=== PATIENT | male | born 1970 | race Caucasian/White ===

== ENCOUNTER 2017-04-12 04:57 | Inpatient (IN) | payer MEDICAID ==
[~2017-04-12] VITALS: Ht 157.5 cm; Wt 63.1 kg
[2017-04-12] VITALS (14 sets, daily range): BP systolic 141–161; BP diastolic 60–89; PULSE 95–116; RESP 18; TEMP 98.4; Ht 157.5 cm; Wt 63.1 kg
[2017-04-12] MEDS ORDERED: CEFEPIME 2GM/50 ML (PMX) 50 ML IVPB STA ×2 (05:13→07:04)
[2017-04-12] MEDS ORDERED: SODIUM CHLORIDE 0.9% 1L BAG IV* STA (05:13)
[2017-04-12 05:35] LABS: AADO2 Arterial 106.1 mmHg (7.0-24.0); Arterial Base Excess -1.5 mmol/L (-3.0-3); Arterial COHb 0.1 % (0.0-3.0); Arterial Fraction of Oxyhgb 94.1 % (93.0-99.0); Arterial HCO3 21.2 mmol/L (22.0-26.0); Arterial MetHb 0.1 % (0.0-1.5); Arterial Total Hemglobin 10.5 g/dl (12.0-18.0); Blood Gas IEPAP 15 / 5; Blood Gas PS 10; MODE MASK - BIPAP
[2017-04-12 05:44] LABS: ABNORMAL IP MESSAGE 1; BASOPHILS % 0.1 % (0.0-2.0); HEMOGLOBIN 9.2 g/dl (14.0-18.0); LYMPHOCYTES # 0.3 10^3/ul (0.8-2.9); LYMPHOCYTES % 4.9 % (15.0-51.0); MEAN CORPUSCULAR HEMOGLOBIN 30.7 pg (29.0-33.0); MEAN CORPUSCULAR HGB CONC 32.9 g/dl (32.0-37.0); MEAN CORPUSCULAR VOLUME 93.3 fl (82.0-101.0); MEAN PLATELET VOLUME 10.6 fl (7.4-10.4); MONOCYTE # 0.5 10^3/ul (0.3-0.9); MONOCYTES % 7.3 % (0.0-11.0); NEUTROPHIL # 6.1 10^3/ul (1.6-7.5); NEUTROPHILS % 87.6 % (39.0-77.0); PLATELET COUNT 202 10^3/UL (140-415); POSITIVE DIFF @See below; WHITE BLOOD COUNT 6.9 10^3/ul (4.8-10.8)
[2017-04-12 06:00] LABS: INR 1.21; PROTIME 15.4 Sec (12.2-14.2); PT RATIO 1.2
[2017-04-12 06:01] LABS: PARTIAL THROMBOPLASTIN TIME 55.4 Sec (25.0-35.0)
[2017-04-12 06:07] LABS: ALBUMIN 3.9 g/dl (3.3-4.9); ALBUMIN/GLOBULIN RATIO 1.62; BILIRUBIN,INDIRECT 0.1 mg/dl (0-1.1); BILIRUBIN,TOTAL 0.1 mg/dl (0.2-1.3); CALCIUM 8.9 mg/dl (8.4-10.2); CREATININE 9.91 mg/dl (0.61-1.24); POTASSIUM 4.4 mmol/L (3.5-5.1); TOTAL PROTEIN 6.3 g/dl (6.1-8.1)
[2017-04-12 06:18] LABS: TROPONIN-I 0.07 ng/ml (0.00-0.12)
[2017-04-12] MEDS ORDERED: ACETAMINOPHEN 500 MG TAB PO STA (07:06)
[2017-04-12] MEDS ORDERED: ALBUTEROL 0.083% (NEB) 2.5 MG/3 ML AMP NEB STA (07:09)
[2017-04-12] MEDS ORDERED: IPRATROPIUM (NEB) 0.5 MG/2.5 ML AMP NEB STA (07:09)
--- NOTE | 2017-04-12 07:21 | ERD ---
ER Documentation Chief Complaint Chief Complaint bib ra from dialysis; ra sats 84%, SOB,cough, flu sx's x 1 wk, fever today HPI This is a 46-year-old Australian-speaking male with a known history of end-stage renal disease on hemodialysis every Friday and Friday. The patient had been at his dialysis center just prior to arrival when he developed sudden onset of difficulty in breathing. The patient had received 2 hours of his dialysis when he suddenly became hypoxic satting 84%. He indicates that over the past week he has had a productive cough, tactile fever, generalized myalgias and a decrease in appetite. He denies a headache or neck pain. He did not take any antipyretics prior to arrival. He denies any recent travel and states he has never experienced any similar symptoms. He has no swelling of his lower extremities. Denies any chest pain or pressure that radiates the neck arm back or jaw. ROS All systems reviewed and are negative except as per history of present illness. Allergies Allergies: Coded Allergies: No Known Allergy (Unverified , 04/12/17) PMhx/Soc History of Surgery: Yes (FISTULA JANET) Anesthesia Reaction: No Hx Miscellaneous Medical Probl: Yes (RF, HTN) Hx Alcohol Use: Yes Hx Substance Use: No Hx Tobacco Use: No Smoking Status: Never smoker Physical Exam Vitals Vital Signs Date Time Temp Pulse Resp B/P Pulse Ox O2 Delivery O2 Flow Rate FiO2 04/12/17 08:12 2.0 04/12/17 08:12 120 18 97 Nasal Cannula 2.0 04/12/17 06:35 126 40 166/89 93 Nasal Cannula 3.0 04/12/17 05:17 Non Rebreather 15 04/12/17 05:06 126 34 169/101 98 BIPAP 04/12/17 05:03 102.6 132 27 169/101 100 04/12/17 05:00 129 99 30 Physical Exam Constitutional:Well-developed. Well-nourished. Patient in severe respiratory distress HEENT:Normocephalic. Atraumatic.Pupils were equal round reactive to light. Moist mucous membranes.No tonsillar exudates. Neck: No nuchal rigidity. No lymphadenopathy. No posterior cervical spine tenderness or step-offs. Respiratory: Using accessory muscles of respiration. Decreased breath sounds heard bilaterally. No rales. No wheezing. Cardiovascular: Tachycardic with regular rhythm.No murmurs. No rubs were appreciated.S1, S2 normal. Distal pulses are palpable 2+ bilaterally. GI: Abdomen was soft. Nontender. Non Distended. No pulsatile abdominal masses or bruits. No rebound. No guarding. Bowel sounds were present and normal. Muscle skeletal: Full range of motion of both the upper and lower extremities bilaterally.Normal muscle tone.No assymetrical calf tenderness or swelling. Skin: No petechia, no purpura. No lesions on the palms or the soles of the feet. No maculopapular rash. Positive thrill and bruit of the left upper extremity AV fistula NEURO: Patient was alert, awake, orientated x3.No facial droop. Gait observed and normal with no ataxia.Speech had regular rate and rhythm. No focal neurological deficits. Result Diagram: 04/12/17 0515 04/12/17 0515 Results 24 hrs Laboratory Tests Test 04/12/17 05:13 04/12/17 05:15 04/12/17 07:55 Blood Gas Specimen Source Blood arterial Arterial Blood Date Drawn 04/12/2017 5:10:02 AM Arterial Blood pH (Temp corrected) 7.482 Arterial Blood pCO2 (Temp correct) 29.0mmhg Arterial Blood pO2 (Temp corrected) 73.7mmHG Arterial Blood HCO3 21.2mmol/L Arterial Blood Base Excess -1.5mmol/L Arterial Blood Oxygen Saturation 94.3mmHG Andrey Test N/A Arterial Blood Gas Puncture Site LB Arterial Blood Carboxyhemoglobin 0.1% Arterial Blood Methemoglobin 0.1% Blood Gas A-a O2 Differential 106.1mmHg Oxyhemoglobin Percent 94.1% Total Hemoglobin 10.5g/dl Blood Gas Temperature 37.0C Blood Gas Respiration Rate 16.0 Blood Gas Actual Respiration Rate 36 Blood Gas Modality MASK - BIPAP FiO2 30.0% Blood Gas Pressure Support 10 Blood Gas IPAP/EPAP Ratio 15 / 5 Blood Gas Critical Value Read Back Cary FRANKLIN Blood Gas Notified Whom BL Blood Gas Notified Time 04/12/2017 5:33:55 AM White Blood Count 6.910^3/ul Red Blood Count 3.0010^6/ul Hemoglobin 9.2g/dl Hematocrit 28.0% Mean Corpuscular Volume 93.3fl Mean Corpuscular Hemoglobin 30.7pg Mean Corpuscular Hemoglobin Concent 32.9g/dl Red Cell Distribution Width 13.0% Platelet Count 99635^3/UL Mean Platelet Volume 10.6fl Neutrophils % 87.6% Lymphocytes % 4.9% Monocytes % 7.3% Eosinophils % 0.0% Basophils % 0.1% Nucleated Red Blood Cells % 0.0/100WBC Neutrophils # 6.110^3/ul Lymphocytes # 0.310^3/ul Monocytes # 0.510^3/ul Eosinophils # 0.010^3/ul Basophils # 0.010^3/ul Nucleated Red Blood Cells # 0.010^3/ul Prothrombin Time 15.4Sec Prothrombin Time Ratio 1.2 INR International Normalized Ratio 1.21 Activated Partial Thromboplast Time 55.4Sec Sodium Level 138mmol/L Potassium Level 4.4mmol/L Chloride Level 96mmol/L Carbon Dioxide Level 22mmol/L Anion Gap 24 Blood Urea Nitrogen 54mg/dl Creatinine 9.91mg/dl Glucose Level 86mg/dl Lactic Acid Level 1.2mmol/L 1.3mmol/L Calcium Level 8.9mg/dl Total Bilirubin 0.1mg/dl Direct Bilirubin 0.00mg/dl Indirect Bilirubin 0.1mg/dl Aspartate Amino Transf (AST/SGOT) 11IU/L Alanine Aminotransferase (ALT/SGPT) 41IU/L Alkaline Phosphatase 102IU/L Troponin I 0.070ng/ml Total Protein 6.3g/dl Albumin 3.9g/dl Globulin 2.40g/dl Albumin/Globulin Ratio 1.62 Current Medications Medications (Trade) Dose Ordered Sig/Amanda Route PRN Reason Start Time Stop Time Status Last Admin Dose Admin Sodium Chloride 1830 ml 1,830 ml BOLUS OVER 2 HOURS STAT IV* 04/12/17 05:13 04/12/17 05:15 DC 04/12/17 05:31 Cefepime HCl 50 ml @ 100 mls/hr ONCE STAT IVPB 04/12/17 05:13 04/12/17 05:42 DC 04/12/17 05:31 Cefepime HCl 50 ml @ 100 mls/hr ONCE STAT IVPB 04/12/17 07:04 04/12/17 07:15 DC Vancomycin HCl (Vancocin) 250 ml @ 125 mls/hr ONCE ONCE IVPB 04/12/17 07:30 04/12/17 09:29 DC 04/12/17 07:38 Acetaminophen (Tylenol Tab) 1,000 mg ONCE STAT PO 04/12/17 07:06 04/12/17 07:15 DC 04/12/17 07:50 Albuterol (Proventil 0.083% (Neb)) 5 mg ONCE STAT NEB 04/12/17 07:09 04/12/17 07:15 DC 04/12/17 08:11 Ipratropium Edison (Atrovent 0.02% (Neb)) 0.5 mg ONCE STAT NEB 04/12/17 07:09 04/12/17 07:15 DC 04/12/17 08:11 Ibuprofen (Motrin) 800 mg ONCE ONCE PO 04/12/17 07:30 04/12/17 07:31 DC 04/12/17 07:50 Procedures/MDM The patient presented to the emergency department with shortness of breath. My differential diagnosis included but was not limited to upper airway obstruction , CHF, pulmonary embolism, cardiac ischemia, pneumonia, pneumothorax, anemia, drug overdose, pulmonary edema, COPD or asthma. The patient was immediately placed on noninvasive mechanical ventilation due to his severe dyspnea. This improved his hypoxia. The patient had blood cultures and urine cultures obtained as well as an influenza swab as he did appear with flulike symptoms. My clinical suspicion was low for meningitis or pulmonary embolism 12 Lead EKG tracing ordered and reviewed by myself showed: Sinus tachycardia 120 bpm and no arrhythmia. [place] interval normal. QRS duration normal. No ST segment elevation No ST segment depression. No changes consistent with acute ischemia. Upon reviewing the 1 view chest radiograph ordered by myself the radiologist I did feel the patient's source of sepsis was from pneumonia. Chest radiograph indicated the following: Bilateral infiltrates with more focal consolidation within the left mid/lower lung zones. Patient's infectious symptoms have not stabilized and the patient is at risk of rapid decompensation. The patient will be admitted for careful hydration, antibiotic therapy, and infectious source control. Severe Sepsis Assessment: Infectious Source: Pneumonia End organ damage indicated by: Flower Shop Laborer/Designer > 2.0 Severe Sepsis Managment: Blood Cultures X 2 before broad spectrum antibiotics initiated within 3 hours of recognition. 30 ml/kg NS bolus Completed Initial Lactate: normal Repeat Lactate not indicated as initial < 2.0 The patient will be admitted in serious condition to the hospitalist. The patient will have an anticipated stay of greater than 2 midnights and will go to the telemetry service. The patient's respiratory distress significantly improved after being placed on a BiPAP and received nebulizer treatment. Critical Care: Time: 60 minutes Treatments/Evaluations: Close monitoring and treatment of unstable vital signs, cardiorespiratory, and neurologic status, while maintaining tight balance of fluid, respiratory, and cardiac interventions. Time does not include performing any of the above billable procedures. Departure Diagnosis: Primary Impression: Pneumonia Pneumonia type: due to unspecified organism Laterality: bilateral Lung location: unspecified part of lung Qualified Code: J18.9 - Pneumonia of both lungs due to infectious organism, unspecified part of lung Additional Impressions: Chronic kidney failure Chronic kidney disease stage: unspecified stage Qualified Code: N18.9 - Chronic renal failure, unspecified CKD stage Acute respiratory alkalosis Condition: Serious NATGUNNER MORENO Apr 12, 2017 07:21
[2017-04-12] MEDS ORDERED: IBUPROFEN 800 MG TAB PO ONE (07:30)
[2017-04-12] MEDS ORDERED: VANCOMYCIN 1 GM (PMX) 250 ML IVPB ONE (07:30)
--- NOTE | 2017-04-12 08:29 | RADRPT ---
PROCEDURE: CHEST - 1 VIEW CLINICAL INDICATION: 46-year-old male with shortness of breath and sepsis. TECHNIQUE: A single frontal AP portable semi-erect view of the chest was performed. The images we re reviewed on a PACS workstation. COMPARISON: None. FINDINGS: The cardiomediastinal silhouette is within normal limits. There are diffuse bilateral extensive infi ltrates throughout the lungs with more focal consolidation within the left mid/lower lung zone and a ir bronchograms identified. There is no evidence for pneumothorax. The osseous structures are intact . IMPRESSION: Bilateral infiltrates with more focal consolidation within the left mid/lower lung zones. .Cyrus Kumar MD, MD Date Time Electronically viewed and signed by .Cyrus Kumar MD, on 04/12/2017 05:51 .Gael/
[2017-04-12] MEDS ORDERED: ACETAMINOPHEN 325 MG TAB PO PRN (10:00)
[2017-04-12] MEDS ORDERED: ONDANSETRON 4 MG INJ IV PRN ×2 (10:00→12:30)
[2017-04-12] MEDS ORDERED: SEVE800T10 PO (10:40)
[2017-04-12] MEDS ORDERED: NEPH PO (10:41)
[2017-04-12] MEDS ORDERED: CNC30T PO (10:41)
[2017-04-12] MEDS ORDERED: METO-429 PO (11:25)
[2017-04-12] MEDS ORDERED: NACL 0.9% 3 ML SYG IV SCH (12:30)
[2017-04-12] MEDS ORDERED: HYDROCODONE/APAP (5/325) TAB PO PRN (12:30)
[2017-04-12] MEDS ORDERED: VANCOMYCIN IV PER PHARMACY XX SCH (12:30)
--- NOTE | 2017-04-12 12:31 | HP ---
Date/Time of Note Date/Time of Note DATE: 04/12/17 TIME: 12:30 Assessment/Plan VTE Prophylaxis VTE Prophylaxis Intervention: heparin Assessment/Plan Chief Complaint/Hosp Course 1. Sepsis. Most probably secondary to underlying pneumonia [healthcare associated). The patient will be started on appropriate antibiotics. Pancultures will be obtained. The patient has no evidence of any septic shock. 2. Acute respiratory failure. Hypoxic. Most probably secondary to fluid overload from underlying end-stage renal disease. The patient's telephone collector will be informed about the patient's hospitalization. The patient needs urgent hemodialysis. The patient's electrolyte levels are noncritical. The patient will be started on inhaled bronchodilators. 3. Essential hypertension. The patient will be resumed on antihypertensives. 4. Normocytic, normochromic anemia. Most probably anemia of chronic kidney disease. Will monitor H&H closely. Plan: The patient will be admitted to inpatient telemetry floor. The patient will be started on a renal diet. The patient will be started on DVT prophylaxis. The patient will remain a full code. Activities will be as tolerated. The rest of the patient's management will be based on the clinical course, inputs from consultants, and the results of diagnostic studies. Based on the patient's clinical presentation, he most probably requires at least 2 midnights' stay for further management and evaluation of his clinical presentation. The case and management of this patient was fully discussed with Dr. Mcginnis. Problems: HPI/ROS Admit Date/Time Admit Date/Time Apr 12, 2017 at 11:30 Hx of Present Illness Reason for admission: Brought in from a hemodialysis clinic because of dyspnea, hypoxia, and febrile illness. Consultants 1. Coleman Meza MD, Nephrology.. This is a 46-year-old male with past medical history of end-stage renal disease on hemodialysis on Friday, , and Friday, and essential hypertension who was undergoing hemodialysis when he became acutely short of breath with hypoxia. Therefore, the patient was brought to the emergency room. The patient verbalized that he has been feeling a cough and flulike symptoms for the past 1 week or so. The patient was complaining of abdominal bloating and nausea along with decreased appetite. The patient denied any vomiting. The patient verbalized febrile episodes at home. The patient denied any chest pain. In the emergency room, the patient had a temperature of 102.6F. The patient' s chest x-ray that was done showed bilateral infiltrates with more focal consolidation within the left mid/lower lung zones. The patient was treated with IV cefepime and IV vancomycin in the emergency room. The patient was placed on BiPAP therapy in the emergency room that helped to improve the patient 's respiratory distress. ROS Constitutional: chills, febrile, poor po Eyes: no complaints ENT: no complaints Respiratory: cough, shortness of breath, sputum Cardiovascular: no complaints Gastrointestinal: nausea, other (bloating) Genitourinary: no complaints Musculoskeletal: no complaints Skin: no complaints Neurologic: no complaints Endocrine: no complaints Lymphatic: no complaints Psychological: no complaints PMH/Family/Social Past Medical History Medical History: hypertension, renal disease Past Surgical History Past Surgical Hx: other (LUE AV fistula placement) Social History Alcohol Use: rarely Smoking Status: Never smoker Drug Use: none Exam/Review of Systems Vital Signs Vitals Vital Signs Date Time Temp Pulse Resp B/P Pulse Ox O2 Delivery O2 Flow Rate FiO2 04/12/17 11:48 98.6 111 18 161/89 96 04/12/17 10:35 Nasal Cannula 3.0 04/12/17 05:00 30 Exam Exam General: Adequately build 46 year-old male lying in bed in no apparent distress. HEENT: Normocephalic, atraumatic. Eyes: Anicteric sclerae, conjunctivae clear. ENT: Nasal septum midline, oral mucosa moist. Neck supple, JVD noticed. Respiratory: Bilaterally diminished breath sounds. No use of accessory muscles of respiration. B/L rales. Cardiovascular: S1, S2 heard. No murmurs or gallops. Abdomen: Soft, nontender, and nondistended. Bowel sounds positive in all 4 quadrants. Genitourinary: Deferred. Extremities: No cyanosis, no clubbing, no edema. Peripheral pulses palpable. LUE AV fistula with positive bruit and thrill. Neurologic: Cranial nerves II through XII grossly intact. The patient is awake, alert, and oriented. Skin: Normal skin turgor. No skin rashes. Labs Result Diagram: 04/12/1751404/12/17514 Procedures Procedures CXR IMPRESSION: Bilateral infiltrates with more focal consolidation within the left mid/lower lung zones. JENNIFER LOPES NP Apr 12, 2017 12:31
[2017-04-12] MEDS: HEPARIN 5,000 UNIT/0.5 ML VIAL SC SCH ×2 (15:40→20:17)
[2017-04-12] MEDS ORDERED: ALBUTEROL/IPRATROPIUM (NEB) 3 ML AMP HHN PRN (16:00)
[2017-04-12] MEDS: GUAIFENESIN 20 MG/ML 5ML CUP PO PRN (16:12)
[2017-04-12] MEDS: SEVELAMER 800 MG TAB PO SCH (17:58)
--- NOTE | 2017-04-12 18:58 | CONS ---
DATE OF ADMISSION: 04/12/2017 DATE OF CONSULTATION: NEPHROLOGY CONSULTATION REASON FOR CONSULTATION: End-stage renal disease. HISTORY OF PRESENT ILLNESS: This 46-year-old man was in his usual state until this morning when he presented for his routine hemodialysis treatment at the [facility] dialysis unit. The patient during his first hour of the dialysis treatment developed acute shortness of breath. The patient wa s taken off the dialysis machine and sent to the emergency room at [facility] [place] for further evaluation and treatment. The patient in the emergency room was found to be hypoxic. He co mplained of shortness of breath. He told the emergency room doctor that he has had a cough for hai ral days and has had a productive cough with fever, generalized myalgias and a decrease in appetite. The patient in the emergency room had a chest x-ray done which showed bilateral pulmonary infiltra claude, left worse than right. The reading on the chest x-ray was read as bilateral infiltrates with m ore focal consolidation within the left mid and lower lung zones. The patient was admitted with a d iagnosis of pneumonia. The patient is now having a hemodialysis treatment. The patient does have a cough and some shortness of breath. The patient does have a history of end-stage renal disease and is on maintenance hemodialysis Friday, and Friday, and was having his routine hemodialy sis treatment this morning, which is a Friday. PAST MEDICAL HISTORY: Remarkable for hypertension. PAST SURGICAL HISTORY: He has an AV fistula for hemodialysis in his left upper arm. SOCIAL HISTORY: The patient does admit to drinking alcohol, but has never smoked. ALLERGIES: HE HAS NO KNOWN DRUG ALLERGIES. PHYSICAL EXAMINATION: GENERAL: At this time reveals a well-developed man who is Romanian speaking only. He is awake and a lert and answers questions appropriately. VITAL SIGNS: Temperature 98.6, pulse of 107, respirations 18, blood pressure 144/85, O2 saturation 96% on nasal cannula. HEENT: Head normocephalic. Eyes: Extraocular muscles intact. NOSE AND MOUTH: Normal. NECK: Supple. No neck vein distention. LUNGS: Lungs were clear to auscultation. Decreased breath sounds at both bases. HEART: Regular rhythm. No murmurs, gallops or rubs. ABDOMEN: Soft, nontender, no masses or megaly. EXTREMITIES: No peripheral edema. NEUROLOGIC: Grossly intact. LABORATORY DATA: White blood count 6900, hemoglobin 9.2, hematocrit 28. Sodium 138, potassium 4.4, chloride 96, CO2 22, BUN 54, creatinine 9.91, glucose 86. IMPRESSION: 1. End-stage renal disease. This patient has end-stage renal disease and is on maintenance hemodia lysis. The patient became acutely short of breath this morning. He has had a cough with fever prio r to admission. His chest x-ray could be consistent with bilateral pneumonia, but he could also hav e some pulmonary vascular congestion. The patient is due for hemodialysis today. He had had a part ial hemodialysis treatment in the dialysis unit this morning. He is now getting a hemodialysis charmaine tment to complete his dialysis today. 2. Pneumonia. 3. Hypertension. PLAN 1. Patient will complete hemodialysis treatment today. 2. Chest x-ray in a.m. 3. Laboratory tests ordered for the morning. 4. Next dialysis treatment to be determined according to chest x-ray and symptoms. 5. I will follow the patient along with you. Dictated By: DAYNE HUANG MD, ND/DANIELA Conf#: [id number] DID#: [id number] CC: EVANS FELIX MD;*EndCC*
[2017-04-12] MEDS: ALBUTEROL/IPRATROPIUM (NEB) 3 ML AMP HHN SCH (19:21)
[2017-04-12] MEDS: ACETAMINOPHEN 325 MG TAB PO PRN (20:18)
[2017-04-13] VITALS (16 sets, daily range): BP systolic 136–167; BP diastolic 80–98; PULSE 92–108; RESP 18–20
[2017-04-13] MEDS: CEFEPIME 1GM/50 ML (PMX) 50 ML IVPB SCH (05:18)
[2017-04-13] MEDS: HEPARIN 5,000 UNIT/0.5 ML VIAL SC SCH ×3 (05:22→21:01)
[2017-04-13 07:26] LABS: BASOPHILS % 0.3 % (0.0-2.0); EOSINOPHILS # 0.2 10^3/ul (0.0-0.5); HEMATOCRIT 29.6 % (42.0-52.0); HEMOGLOBIN 9.5 g/dl (14.0-18.0); LYMPHOCYTES # 0.9 10^3/ul (0.8-2.9); LYMPHOCYTES % 8.2 % (15.0-51.0); MEAN CORPUSCULAR HEMOGLOBIN 30.9 pg (29.0-33.0); MEAN CORPUSCULAR HGB CONC 32.1 g/dl (32.0-37.0); MEAN CORPUSCULAR VOLUME 96.4 fl (82.0-101.0); MEAN PLATELET VOLUME 10.6 fl (7.4-10.4); MONOCYTE # 0.7 10^3/ul (0.3-0.9); MONOCYTES % 6.4 % (0.0-11.0); NEUTROPHILS % 82.6 % (39.0-77.0); PLATELET COUNT 216 10^3/UL (140-415); RED BLOOD COUNT 3.07 10^6/ul (4.70-6.10); RED CELL DISTRIBUTION WIDTH 13.1 % (11.5-14.5); WHITE BLOOD COUNT 10.9 10^3/ul (4.8-10.8)
[2017-04-13] MEDS: ALBUTEROL/IPRATROPIUM (NEB) 3 ML AMP HHN SCH ×3 (08:00→20:01)
[2017-04-13 08:04] LABS: CALCIUM 9.7 mg/dl (8.4-10.2); CREATININE 10.61 mg/dl (0.61-1.24); POTASSIUM 4.7 mmol/L (3.5-5.1)
[2017-04-13 08:12] LABS: CHOL/HDL RATIO 2.9 RATIO; MAGNESIUM 2.5 mg/dl (1.7-2.5); PHOSPHORUS 6.3 mg/dl (2.5-4.9)
[2017-04-13 08:39] LABS: THYROID STIMULATING HORMONE 1.64 MIU/L (0.465-4.680)
[2017-04-13] MEDS: MULTIVIT/CA CARB/B CMPLX/FA TAB PO SCH (08:51)
[2017-04-13] MEDS: CINACALCET 30 MG TAB PO SCH (08:51)
[2017-04-13] MEDS: SEVELAMER 800 MG TAB PO SCH ×3 (08:51→18:52)
[2017-04-13] MEDS: METOPROLOL 50 MG TAB PO SCH (08:51)
[2017-04-13] MEDS: GUAIFENESIN 20 MG/ML 5ML CUP PO PRN ×2 (08:51→17:16)
[2017-04-13] MEDS ORDERED: hydrALAzine 20 MG INJ IV PRN (09:30)
--- NOTE | 2017-04-13 12:06 | PN ---
Date/Time of Note Date/Time of Note DATE: 04/13/17 TIME: 12:04 Assessment/Plan VTE Prophylaxis VTE Prophylaxis Intervention: SCD's Lines/Catheters IV [facility]atheter [facility] (from [facility]): Saline Lock Assessment/Plan Chief Complaint/Hosp Course Assessment and plan 1. Sepsis secondary to underlying pneumonia. Continue antibiotics. Follow-up on sputum culture. He appears to be improving at present. Antitussives needed. 2. Acute respiratory failure. Secondary to #1. Also possibly from underlying incisional disease. Continue on dialysis per mortgage loan counselor. Continue on O2 as needed and titrate down as tolerated. 3. Essential hypertension. Continue antihypertensives and adjust as needed. 4. Normocytic normochromic anemia. Likely of chronic disease. H&H remained stable at present. Transfuse blood products as needed. Disposition plan: Continue antibiotics. Monitor for clinical improvement of pulmonary status. Discussed plan of care with Dr. Mcginnis Problems: Subjective 24 Hr Interval Summary Free Text/Dictation Still noted with some congestion shortness of breath. Reports having a productive cough at present. Exam/Review of Systems Vital Signs Vitals Vital Signs Date Time Temp Pulse Resp B/P Pulse Ox O2 Delivery O2 Flow Rate FiO2 04/13/17 08:12 98.0 99 18 167/92 97 04/13/17 08:02 4.0 04/13/17 08:00 Nasal Cannula 04/12/17 05:00 30 Intake and Output 04/12/17 04/12/17 04/13/17 15:00 23:00 07:00 Intake Total 700 ml 120 ml Output Total 3000 ml Balance -2300 ml 120 ml Exam Constitutional: alert, oriented Psych: nl mood/affect Head: normocephalic Eyes: nl conjunctiva Neck: non-tender, supple Respiratory: other (Minimal rhonchi auscultated bilaterally) Cardiovascular: regular rate and rhythm Gastrointestinal: non-tender, soft Musculoskeletal: nl extremities to inspection, nl gait and stance Extremities: normal pulses Neurological: COMMERCIAL TELLER II-XII intact, nl mental status, nl speech Skin: nl turgor Results Result Diagram: 04/13/1762404/13/17624 Results 24 hrs Laboratory Tests Test 04/13/17 06:25 04/13/17 06:26 White Blood Count 10.9 #H Red Blood Count 3.07 L Hemoglobin 9.5 L Hematocrit 29.6 L Mean Corpuscular Volume 96.4 Mean Corpuscular Hemoglobin 30.9 Mean Corpuscular Hemoglobin Concent 32.1 Red Cell Distribution Width 13.1 Platelet Count 216 Mean Platelet Volume 10.6 H Neutrophils % 82.6 H Lymphocytes % 8.2 L Monocytes % 6.4 Eosinophils % 2.0 Basophils % 0.3 Nucleated Red Blood Cells % 0.0 Neutrophils # 9.0 H Lymphocytes # 0.9 Monocytes # 0.7 Eosinophils # 0.2 Basophils # 0.0 Nucleated Red Blood Cells # 0.0 Sodium Level 139 Potassium Level 4.7 Chloride Level 97 Carbon Dioxide Level 24 Anion Gap 23 H Blood Urea Nitrogen 51 H Creatinine 10.61 H Glucose Level 82 Hemoglobin A1c 4.9 Calcium Level 9.7 Free Thyroxine 1.92 H Phosphorus Level 6.3 H Magnesium Level 2.5 Triglycerides Level 119 Cholesterol Level 108 LDL Cholesterol, Calculated 47 HDL Cholesterol 37 Cholesterol/HDL Ratio 2.9 Thyroid Stimulating Hormone (TSH) 1.640 Medications Medications Current Medications Ondansetron HCl (Zofran Inj) 4 mg Q6H PRN IV NAUSEA AND/OR VOMITING; Start 04/18 at 12:30 Acetaminophen (Tylenol Tab) 650 mg Q6H PRN PO PAIN LEVEL 1-3 OR FEVER Last administered on 04/12/17 20:18; Admin Dose 650 MG; Start 04/12/17 at 12:30 Acetaminophen/ Hydrocodone Bitart ([place] (5/325)) 1 tab Q6H PRN PO PAIN LEVEL 4 -6; Start 04/12/17 at 12:30 Heparin Sodium (Porcine) (Heparin (5000 Units/0.5 ml)) 5,000 unit Q8 SC Last administered on 04/13/17 05:22; Admin Dose 5,000 UNIT; Start 04/12/17 at 14: 00 Cinacalcet (Sensipar) 30 mg DAILY PO Last administered on 04/13/17 08:51; Admin Dose 30 MG; Start 04/13/17 at 09:00 Metoprolol Tartrate (Lopressor) 50 mg DAILY PO Last administered on 04/13/17 08:51; Admin Dose 50 MG; Start 04/13/17 at 09:00 Multivit/Ca Carb/ B Cmplx/FA/Prenat 1 tab 1 tab DAILY PO Last administered on 04/13/17 08:51; Admin Dose 1 TAB; Start 04/13/17 at 09:00 Cefepime HCl (Maxipime 1gm/50 ml (Pmx)) 50 ml @ 100 mls/hr Q24H IVPB Last administered on 04/13/17 05:18; Admin Dose 100 MLS/HR; Start 04/13/17 at 06: 00 Guaifenesin (Robitussin Liquid Cup) 100 mg Q4H PRN PO COUGH Last administered on 04/13/17 08:51; Admin Dose 100 MG; Start 04/12/17 at 16:00 Hydralazine HCl (Apresoline) 10 mg Q4H PRN IV sbp>160; Start 04/13/17 at 09:30 LAY BAEZ Apr 13, 2017 12:06
--- NOTE | 2017-04-13 15:14 | RADRPT ---
PROCEDURE: XR Chest. CLINICAL INDICATION: Congestive heart failure. TECHNIQUE: PA and Lateral views of the chest were obtained. COMPARISON: Chest radiograph dated April 12, 2017. FINDINGS: There is stable cardiomegaly. Again seen are parenchymal opacities in the bilateral lungs, left greater than right -- decreased wh en compared to prior study. No evidence of pneumothorax. The osseous structures are unremarkable. IMPRESSION: 1. Parenchymal opacities in the bilateral lungs, left greater than right -- decreased when compared to prior study. Findings likely represent improving pulmonary edema or pneumonia. RPTAT:AAJJ Physician Monty Date Time Electronically viewed and signed by Physician Monty on 04/13/2017 15:14 QL/
--- NOTE | 2017-04-13 15:41 | CONS ---
Date/Time of Note Date/Time of Note DATE: 04/13/17 TIME: 15:37 Assessment/Plan Assessment/Plan Chief Complaint/Hosp Course 1. End-stage renal disease on maintenance hemodialysis Friday 2. Inspiratory insufficiency due to bilateral pulmonary infiltrates. He either has bilateral pneumonia and or some component of congestive heart failure. He is feeling better today. He just complains of cough. 3. I will order a hemodialysis treatment for tomorrow. 4. Continue current antibiotics as ordered. Problems: Consultation Date/Type/Reason Admit Date/Time Apr 12, 2017 at 09:50 Initial Consult Date Type of Consultation: nephrology Reason for Consultation ESRD 24 HR Interval Summary Free Text/Dictation The patient is feeling better today. He has less shortness of breath. He still has a cough. Constitutional: improved Exam/Review of Systems Vital Signs Vitals Vital Signs Date Time Temp Pulse Resp B/P Pulse Ox O2 Delivery O2 Flow Rate FiO2 04/13/17 14:26 112 20 94 Nasal Cannula 4.0 04/13/17 12:15 97.5 140/84 04/12/17 05:00 30 Intake and Output 04/12/17 04/12/17 04/13/17 15:00 23:00 07:00 Intake Total 700 ml 120 ml Output Total 3000 ml Balance -2300 ml 120 ml Exam Constitutional: alert, oriented, well developed Respiratory: crackles/rales, diminished breath sounds Cardiovascular: regular rate and rhythm Gastrointestinal: soft Musculoskeletal: nl extremities to inspection Results Result Diagram: 04/13/17 0625 04/13/17 0625 Results 24 hrs Laboratory Tests Test 04/13/17 06:25 04/13/17 06:26 White Blood Count 10.9 #H Red Blood Count 3.07 L Hemoglobin 9.5 L Hematocrit 29.6 L Mean Corpuscular Volume 96.4 Mean Corpuscular Hemoglobin 30.9 Mean Corpuscular Hemoglobin Concent 32.1 Red Cell Distribution Width 13.1 Platelet Count 216 Mean Platelet Volume 10.6 H Neutrophils % 82.6 H Lymphocytes % 8.2 L Monocytes % 6.4 Eosinophils % 2.0 Basophils % 0.3 Nucleated Red Blood Cells % 0.0 Neutrophils # 9.0 H Lymphocytes # 0.9 Monocytes # 0.7 Eosinophils # 0.2 Basophils # 0.0 Nucleated Red Blood Cells # 0.0 Sodium Level 139 Potassium Level 4.7 Chloride Level 97 Carbon Dioxide Level 24 Anion Gap 23 H Blood Urea Nitrogen 51 H Creatinine 10.61 H Glucose Level 82 Hemoglobin A1c 4.9 Calcium Level 9.7 Free Thyroxine 1.92 H Phosphorus Level 6.3 H Magnesium Level 2.5 Triglycerides Level 119 Cholesterol Level 108 LDL Cholesterol, Calculated 47 HDL Cholesterol 37 Cholesterol/HDL Ratio 2.9 Thyroid Stimulating Hormone (TSH) 1.640 Medications Medications Current Medications Ondansetron HCl (Zofran Inj) 4 mg Q6H PRN IV NAUSEA AND/OR VOMITING; Start 04/18 at 12:30 Acetaminophen (Tylenol Tab) 650 mg Q6H PRN PO PAIN LEVEL 1-3 OR FEVER Last administered on 04/12/17 20:18; Admin Dose 650 MG; Start 04/12/17 at 12:30 Acetaminophen/ Hydrocodone Bitart ([place] (5/325)) 1 tab Q6H PRN PO PAIN LEVEL 4 -6; Start 04/12/17 at 12:30 Heparin Sodium (Porcine) (Heparin (5000 Units/0.5 ml)) 5,000 unit Q8 SC Last administered on 04/13/17 13:58; Admin Dose 5,000 UNIT; Start 04/12/17 at 14: 00 Cinacalcet (Sensipar) 30 mg DAILY PO Last administered on 04/13/17 08:51; Admin Dose 30 MG; Start 04/13/17 at 09:00 Metoprolol Tartrate (Lopressor) 50 mg DAILY PO Last administered on 04/13/17 08:51; Admin Dose 50 MG; Start 04/13/17 at 09:00 Multivit/Ca Carb/ B Cmplx/FA/Prenat 1 tab 1 tab DAILY PO Last administered on 04/13/17 08:51; Admin Dose 1 TAB; Start 04/13/17 at 09:00 Cefepime HCl (Maxipime 1gm/50 ml (Pmx)) 50 ml @ 100 mls/hr Q24H IVPB Last administered on 04/13/17 05:18; Admin Dose 100 MLS/HR; Start 04/13/17 at 06: 00 Guaifenesin (Robitussin Liquid Cup) 100 mg Q4H PRN PO COUGH Last administered on 04/13/17 08:51; Admin Dose 100 MG; Start 04/12/17 at 16:00 Hydralazine HCl (Apresoline) 10 mg Q4H PRN IV sbp>160; Start 04/13/17 at 09:30 Miscellaneous Information (*Rx Drug Level Order Reminder*) VANCO RANDOM W/ AM LABS... ONCE ONCE XX ; Start 04/14/17 at 05:00; Stop 04/14/17 at 05:01 DAYNE HUANG MD Apr 13, 2017 15:41
[2017-04-14] VITALS (19 sets, daily range): BP systolic 133–177; BP diastolic 68–98; PULSE 72–100; RESP 16–20
[2017-04-14] MEDS: GUAIFENESIN 20 MG/ML 5ML CUP PO PRN ×2 (01:20→20:18)
[2017-04-14] MEDS: CEFEPIME 1GM/50 ML (PMX) 50 ML IVPB SCH (05:35)
[2017-04-14] MEDS: HEPARIN 5,000 UNIT/0.5 ML VIAL SC SCH ×3 (05:54→20:23)
--- NOTE | 2017-04-14 07:42 | CONS ---
Date/Time of Note Date/Time of Note DATE: 04/14/17 TIME: 07:39 Assessment/Plan Assessment/Plan Problems: (1) ESRD (end stage renal disease) on dialysis Comment: normally TTS... will do today to assist in SOB (2) HTN (hypertension) Comment: sl up... on metoprolol... f/u post the UF w HD (3) Pneumonia Comment: on abx and HHN w improvement Consultation Date/Type/Reason Admit Date/Time Apr 12, 2017 at 09:50 Initial Consult Date Type of Consultation: nephrology 24 HR Interval Summary Free Text/Dictation feels a bit better... still some SOB Exam/Review of Systems Vital Signs Vitals Vital Signs Date Time Temp Pulse Resp B/P Pulse Ox O2 Delivery O2 Flow Rate FiO2 04/14/17 04:00 100 04/14/17 04:00 98.4 19 156/87 99 04/14/17 02:43 4.0 04/13/17 20:01 Nasal Cannula 04/12/17 05:00 30 Intake and Output 04/13/17 04/13/17 04/14/17 15:00 23:00 07:00 Intake Total 300 ml 600 ml 250 ml Output Total 2500 ml Balance -2200 ml 600 ml 250 ml Exam Constitutional: alert, oriented Head: normocephalic Neck: supple Respiratory: clear to auscultation Cardiovascular: regular rate and rhythm (with some extrasystoles) Gastrointestinal: nl liver, spleen, soft Musculoskeletal: nl extremities to inspection Extremities: normal pulses Results Result Diagram: 04/13/1762404/13/17624 Medications Medications Current Medications Ondansetron HCl (Zofran Inj) 4 mg Q6H PRN IV NAUSEA AND/OR VOMITING; Start 04/18 at 12:30 Acetaminophen (Tylenol Tab) 650 mg Q6H PRN PO PAIN LEVEL 1-3 OR FEVER Last administered on 04/12/17t 20:18; Admin Dose 650 MG; Start 04/12/17 at 12:30 Acetaminophen/ Hydrocodone Bitart ([place] (5/325)) 1 tab Q6H PRN PO PAIN LEVEL 4 -6; Start 04/12/17 at 12:30 Heparin Sodium (Porcine) (Heparin (5000 Units/0.5 ml)) 5,000 unit Q8 SC Last administered on 04/14/17 05:54; Admin Dose 5,000 UNIT; Start 04/12/17 at 14: 00 Cinacalcet (Sensipar) 30 mg DAILY PO Last administered on 04/13/17 08:51; Admin Dose 30 MG; Start 04/13/17 at 09:00 Metoprolol Tartrate (Lopressor) 50 mg DAILY PO Last administered on 04/13/17 08:51; Admin Dose 50 MG; Start 04/13/17 at 09:00 Multivit/Ca Carb/ B Cmplx/FA/Prenat 1 tab 1 tab DAILY PO Last administered on 04/13/17 08:51; Admin Dose 1 TAB; Start 04/13/17 at 09:00 Cefepime HCl (Maxipime 1gm/50 ml (Pmx)) 50 ml @ 100 mls/hr Q24H IVPB Last administered on 04/14/17 05:35; Admin Dose 100 MLS/HR; Start 04/13/17 at 06: 00 Guaifenesin (Robitussin Liquid Cup) 100 mg Q4H PRN PO COUGH Last administered on 04/14/17 01:20; Admin Dose 100 MG; Start 04/12/17 at 16:00 Hydralazine HCl (Apresoline) 10 mg Q4H PRN IV sbp>160 Last administered on 01:41; Admin Dose 10 MG; Start 04/13/17 at 09:30 Epoetin Wisam (Epogen (Esrd)) 10,000 units MoWeFr@17 SC ; Start 04/14/17 at 17: 00 ELIZABETH HERNANDEZ MD Apr 14, 2017 07:42
[2017-04-14] MEDS: ALBUTEROL/IPRATROPIUM (NEB) 3 ML AMP HHN SCH ×3 (08:08→19:55)
[2017-04-14] MEDS: METOPROLOL 50 MG TAB PO SCH ×3 (08:49→20:12)
[2017-04-14] MEDS: SEVELAMER 800 MG TAB PO SCH ×3 (08:54→17:02)
[2017-04-14] MEDS: CINACALCET 30 MG TAB PO SCH (08:56)
[2017-04-14] MEDS: MULTIVIT/CA CARB/B CMPLX/FA TAB PO SCH (08:56)
[2017-04-14] MEDS ORDERED: VANCOMYCIN 1 GM in NS 250 ML IVPB SCH (11:00)
--- NOTE | 2017-04-14 13:44 | PN ---
Date/Time of Note Date/Time of Note DATE: 04/14/17 TIME: 13:41 Assessment/Plan VTE Prophylaxis VTE Prophylaxis Intervention: heparin Lines/Catheters IV [facility]from [facility] [place] Assessment/Plan Chief Complaint/Hosp Course 1. S/P sepsis. Most probably secondary to underlying pneumonia [healthcare associated). The patient will be maintained on appropriate antibiotics. Pancultures negative so far. The patient has no evidence of any septic shock. 2. Acute respiratory failure. Hypoxic. Resolved. Most probably secondary to fluid overload from underlying end-stage renal disease. Resolved. 3. Essential hypertension. The patient will be continued on antihypertensives. 4. Normocytic, normochromic anemia. Most probably anemia of chronic kidney disease. Will monitor H&H closely. 5. Fluids, electrolytes, and nutrition. Renal diet. 6. DVT prophylaxis. Subcutaneous heparin. 7. Plan. Continue antibiotics. Continue aggressive hemodialysis. Repeat chest x-ray in the a.m. Obtain 2D echocardiogram to evaluate for any underlying heart failure. Case discussed with Dr. Robb. Problems: Subjective 24 Hr Interval Summary Free Text/Dictation Complains of cough. Exam/Review of Systems Vital Signs Vitals Vital Signs Date Time Temp Pulse Resp B/P Pulse Ox O2 Delivery O2 Flow Rate FiO2 04/14/17 12:16 86 04/14/17 08:09 18 95 Nasal Cannula 4.0 04/14/17 07:39 98.0 170/90 04/12/17 05:00 30 Intake and Output 04/13/17 04/13/17 04/14/17 14:59 22:59 06:59 Intake Total 300 ml 600 ml 250 ml Output Total 2500 ml Balance -2200 ml 600 ml 250 ml Exam General: Adequately build 46 year-old male lying in bed in no apparent distress. HEENT: Normocephalic, atraumatic. Eyes: Anicteric sclerae, conjunctivae clear. ENT: Nasal septum midline, oral mucosa moist. Neck supple, JVD noticed. Respiratory: Bilaterally diminished breath sounds. No use of accessory muscles of respiration. B/L rales. Cardiovascular: S1, S2 heard. No murmurs or gallops. Abdomen: Soft, nontender, and nondistended. Bowel sounds positive in all 4 quadrants. Genitourinary: Deferred. Extremities: No cyanosis, no clubbing, no edema. Peripheral pulses palpable. LUE AV fistula with positive bruit and thrill. Neurologic: Cranial nerves II through XII grossly intact. The patient is awake, alert, and oriented. Skin: Normal skin turgor. No skin rashes. Results Result Diagram: 04/13/17 0625 04/13/17 0625 Results 24 hrs Laboratory Tests Test 04/14/17 06:48 Random Vancomycin Level 9.7 Medications Medications Current Medications Ondansetron HCl (Zofran Inj) 4 mg Q6H PRN IV NAUSEA AND/OR VOMITING; Start 04/18 at 12:30 Acetaminophen (Tylenol Tab) 650 mg Q6H PRN PO PAIN LEVEL 1-3 OR FEVER Last administered on 04/12/17 20:18; Admin Dose 650 MG; Start 04/12/17 at 12:30 Acetaminophen/ Hydrocodone Bitart ([place] (5/325)) 1 tab Q6H PRN PO PAIN LEVEL 4 -6; Start 04/12/17 at 12:30 Heparin Sodium (Porcine) (Heparin (5000 Units/0.5 ml)) 5,000 unit Q8 SC Last administered on 04/14/17 13:33; Admin Dose 5,000 UNIT; Start 04/12/17 at 14: 00 Cinacalcet (Sensipar) 30 mg DAILY PO Last administered on 04/14/17 08:56; Admin Dose 30 MG; Start 04/13/17 at 09:00 Metoprolol Tartrate (Lopressor) 50 mg DAILY PO Last administered on 04/14/17 08:56; Admin Dose 50 MG; Start 04/13/17 at 09:00 Multivit/Ca Carb/ B Cmplx/FA/Prenat 1 tab 1 tab DAILY PO Last administered on 04/14/17 08:56; Admin Dose 1 TAB; Start 04/13/17 at 09:00 Cefepime HCl (Maxipime 1gm/50 ml (Pmx)) 50 ml @ 100 mls/hr Q24H IVPB Last administered on 04/14/17 05:35; Admin Dose 100 MLS/HR; Start 04/13/17 at 06: 00 Guaifenesin (Robitussin Liquid Cup) 100 mg Q4H PRN PO COUGH Last administered on 04/14/17 01:20; Admin Dose 100 MG; Start 04/12/17 at 16:00 Hydralazine HCl (Apresoline) 10 mg Q4H PRN IV sbp>160 Last administered on 01:41; Admin Dose 10 MG; Start 04/13/17 at 09:30 Epoetin Wisam 38392 units 10,000 units MoWeFr@17 SC ; Start 04/14/17 at 17:00 Vancomycin HCl (Vancocin) 250 ml @ 125 mls/hr ONCE IVPB Last administered on 04/14/17 10:43; Admin Dose 125 MLS/HR; Start 04/14/17 at 11:00; Stop at 16:00 JENNIFER LOPES NP Apr 14, 2017 13:44
[2017-04-14] MEDS ORDERED: EPOETIN 10000 UNITS/1 ML INJ (ESRD) SC SCH (17:00)
[2017-04-15] VITALS (13 sets, daily range): BP systolic 126–185; BP diastolic 74–96; PULSE 81–110; RESP 16
[2017-04-15] MEDS: CEFEPIME 1GM/50 ML (PMX) 50 ML IVPB SCH (05:11)
[2017-04-15] MEDS: HEPARIN 5,000 UNIT/0.5 ML VIAL SC SCH ×2 (05:15→13:27)
[2017-04-15] MEDS: GUAIFENESIN 20 MG/ML 5ML CUP PO PRN (05:19)
--- NOTE | 2017-04-15 07:40 | CONS ---
Date/Time of Note Date/Time of Note DATE: 04/15/17 TIME: 07:37 Assessment/Plan Assessment/Plan Problems: (1) Epistaxis Comment: due to the nasal O2... will Rx w polysporin (2) HTN (hypertension) Comment: better on the metop bid (3) Pneumonia Comment: improving clinically.. await CXR (4) ESRD (end stage renal disease) on dialysis Comment: short HD today to get back on TTS schedule Consultation Date/Type/Reason Admit Date/Time Apr 12, 2017 at 09:50 Type of Consultation: nephrology 24 HR Interval Summary Free Text/Dictation feels better.. some epistaxis Exam/Review of Systems Vital Signs Vitals Vital Signs Date Time Temp Pulse Resp B/P Pulse Ox O2 Delivery O2 Flow Rate FiO2 04/15/17 04:18 82 04/15/17 04:17 98.5 16 133/76 99 04/14/17 20:00 Nasal Cannula 4.0 04/12/17 05:00 30 Intake and Output 04/14/17 04/14/17 04/15/17 14:59 22:59 06:59 Intake Total 550 ml 1000 ml 400 ml Output Total 3300 ml Balance -2750 ml 1000 ml 400 ml Exam Constitutional: alert, oriented, well developed Head: atraumatic, normocephalic Eyes: nl conjunctiva ENMT: nl external ears & nose Respiratory: clear to auscultation Cardiovascular: regular rate and rhythm Gastrointestinal: nl liver, spleen, soft Extremities: edema (none), normal pulses Results Result Diagram: 04/13/1762404/13/17624 Medications Medications Current Medications Ondansetron HCl (Zofran Inj) 4 mg Q6H PRN IV NAUSEA AND/OR VOMITING; Start 04/18 at 12:30 Acetaminophen (Tylenol Tab) 650 mg Q6H PRN PO PAIN LEVEL 1-3 OR FEVER Last administered on 04/12/17 20:18; Admin Dose 650 MG; Start 04/12/17 at 12:30 Acetaminophen/ Hydrocodone Bitart ([place] (5/325)) 1 tab Q6H PRN PO PAIN LEVEL 4 -6 Last administered on 04/14/17 20:12; Admin Dose 1 TAB; Start 04/12/17 at 12:30 Heparin Sodium (Porcine) (Heparin (5000 Units/0.5 ml)) 5,000 unit Q8 SC Last administered on 04/15/17 05:15; Admin Dose 5,000 UNIT; Start 04/12/17 at 14: 00 Cinacalcet (Sensipar) 30 mg DAILY PO Last administered on 04/14/17 08:56; Admin Dose 30 MG; Start 04/13/17 at 09:00 Multivit/Ca Carb/ B Cmplx/FA/Prenat 1 tab 1 tab DAILY PO Last administered on 04/14/17 08:56; Admin Dose 1 TAB; Start 04/13/17 at 09:00 Cefepime HCl (Maxipime 1gm/50 ml (Pmx)) 50 ml @ 100 mls/hr Q24H IVPB Last administered on 04/15/17 05:11; Admin Dose 100 MLS/HR; Start 04/13/17 at 06: 00 Guaifenesin (Robitussin Liquid Cup) 100 mg Q4H PRN PO COUGH Last administered on 04/15/17 05:19; Admin Dose 100 MG; Start 04/12/17 at 16:00 Hydralazine HCl (Apresoline) 10 mg Q4H PRN IV sbp>160 Last administered on 01:41; Admin Dose 10 MG; Start 04/13/17 at 09:30 Epoetin Wisam (Epogen (Esrd)) 10,000 units MoWeFr@17 SC Last administered on 17:02; Admin Dose 10,000 UNITS; Start 04/14/17 at 17:00 Metoprolol Tartrate (Lopressor) 50 mg BID PO Last administered on 04/14/17 20 :12; Admin Dose 50 MG; Start 04/14/17 at 21:00 ELIZABETH HERNANDEZ MD Apr 15, 2017 07:40
[2017-04-15] MEDS: ACETAMINOPHEN 325 MG TAB PO PRN (07:43)
[2017-04-15] MEDS: SEVELAMER 800 MG TAB PO SCH ×3 (07:43→17:25)
[2017-04-15 08:08] LABS: BASOPHILS % 0.4 % (0.0-2.0); EOSINOPHILS # 0.4 10^3/ul (0.0-0.5); EOSINOPHILS % 5.3 % (0.0-7.0); HEMATOCRIT 29.6 % (42.0-52.0); HEMOGLOBIN 9.5 g/dl (14.0-18.0); LYMPHOCYTES # 1.2 10^3/ul (0.8-2.9); LYMPHOCYTES % 14.4 % (15.0-51.0); MEAN CORPUSCULAR HEMOGLOBIN 30.6 pg (29.0-33.0); MEAN CORPUSCULAR HGB CONC 32.1 g/dl (32.0-37.0); MEAN CORPUSCULAR VOLUME 95.5 fl (82.0-101.0); MEAN PLATELET VOLUME 10.3 fl (7.4-10.4); MONOCYTE # 0.8 10^3/ul (0.3-0.9); MONOCYTES % 9.1 % (0.0-11.0); NEUTROPHIL # 5.5 10^3/ul (1.6-7.5); NEUTROPHILS % 67.2 % (39.0-77.0); PLATELET COUNT 275 10^3/UL (140-415); RED CELL DISTRIBUTION WIDTH 12.6 % (11.5-14.5); WHITE BLOOD COUNT 8.3 10^3/ul (4.8-10.8)
[2017-04-15] MEDS: METOPROLOL 50 MG TAB PO SCH (08:18)
[2017-04-15] MEDS: MULTIVIT/CA CARB/B CMPLX/FA TAB PO SCH (08:18)
[2017-04-15] MEDS: CINACALCET 30 MG TAB PO SCH (08:18)
[2017-04-15] MEDS: BACITRACIN/POLYMYXIN 28.35 GM OINT TOP SCH ×2 (08:19→10:42)
[2017-04-15] MEDS: ALBUTEROL/IPRATROPIUM (NEB) 3 ML AMP HHN SCH ×2 (08:25→14:00)
[2017-04-15 08:28] LABS: ALBUMIN 3.8 g/dl (3.3-4.9); ALBUMIN/GLOBULIN RATIO 1.08; CALCIUM 10.1 mg/dl (8.4-10.2); CREATININE 9.33 mg/dl (0.61-1.24); POTASSIUM 4.6 mmol/L (3.5-5.1); TOTAL PROTEIN 7.3 g/dl (6.1-8.1)
--- NOTE | 2017-04-15 09:02 | RADRPT ---
PROCEDURE: XR Chest. CLINICAL INDICATION: Shortness of breath TECHNIQUE: Single portable view of the chest was obtained. COMPARISON: 04/13/2017 and 04/12/2017 FINDINGS: Cardiac/vascular structures: Stable cardiomediastinal silhouette. Pulmonary: Improved aeration with residual bilateral interstitial opacities and the left upper lobe airspace opacity.. No pleural effusion. No evidence of pneumothorax. Osseous structures: Normal Soft tissues: Normal IMPRESSION: Improved aeration with residual bilateral interstitial opacities and left upper lobe airspace opacit y consistent with resolving pneumonia . RPTAT:AAJJ Physician Roel Date Time Electronically viewed and signed by Physician Roel on 04/15/2017 09:01 /
--- NOTE | 2017-04-15 15:00 | PDOCDIS ---
Discharge Instructions DIAGNOSIS Discharge Diagnosis Pneumonia CONDITION Patient Condition: Stable HOME CARE INSTRUCTIONS: Special Diet: Renal diet FOLLOW UP/APPOINTMENTS Follow-up Plan Wayne Oliver MD Specialty: Internal Medicine Office Address: [address] [place], [place] [id number] Office OTHER ORDERS: Other Orders: 1. Take medications as per prescription. Complete the course of antibiotics 2. Follow-up with your hemodialysis clinic as scheduled. 3. Resume activities as tolerated. 4. Take a renal diet. 5. Follow-up with your primary care physician 1 week. If you do not have a primary care physician, please call Dr. Wayne Oliver's office. JENNIFER LOPES NP Apr 15, 2017 15:00
[2017-04-15] MEDS ORDERED: METO-429 PO (15:01)
[2017-04-15] MEDS ORDERED: LEVO500T72 PO (15:01)
[2017-04-15] MEDS ORDERED: ALBU8.5H3 INH (15:04)
[2017-04-15] MEDS ORDERED: GUAI-637 PO (15:04)
--- NOTE | 2017-04-15 16:17 | RADRPT ---
Echocardiogram Report Patient Name: DANIEL ROSEN Gender: Male Date: 1970 Study Date: 15-Apr-2017 Cloth Spreader Screen Printing: Cyndie Nelson [facility] Location: [id number] Ref. Physician: JENNIFER LOPES Quality: Good Procedures: Transthoracic echocardiogram with complete 2D, M-Mode, and doppler examination. Indications: Evaluate Left Ventricular function. 2D/M Mode Doppler Measurement Value Normal Ranges Measurement Value Normal Ranges LVIDd 2D 5.9 3.5 - 5.6 cm AV Peak Frank 1.7 m/sec LVIDs 2D 4.2 2.1 - 4.1 cm AV Peak PG 11.3 mmHg LVPWd 2D 1.0 0.6 - 1.1 cm LVOT Peak Frank 1.3 m/sec IVSd 2D 0.9 0.6 - 1.1 cm LVOT Peak PG 7.0 mmHg AoR Diam 2D 3.1 2.0 - 3.7 cm MV E Peak Frank 0.9 m/sec EDV 2D 170.3 cm3 MV A Peak Frank 1.0 m/sec ESV 2D 72.4 cm3 MV E/A 1.0 LA Dimen 2D 3.5 2.3 - 4.0 cm MV Decel Time 160 msec MV Decel [place] 6 MV E/A 1.0 TR Peak Frank 2.5 m/sec TR Peak PG 25.4 mmHg RVSP 35.0 mmHg Findings Left Ventricle: Normal left ventricular wall thickness. Mild enlargement of left ventricle cavity. Moderate left ventricular systolic dysfunction. Ejection fraction is visually estimated at 3035 %. Tissue Doppler/Mitral Doppler indices are consistent with impaired relaxation (Stage I diastolic dysfunction). Right Ventricle: Normal right ventricular size. Normal right ventricular systolic function. Left Atrium: The left atrium is normal in size. Right Atrium: The right atrium is normal in size. Mitral Valve: Mitral valve leaflets appear mildly thickened. Mild mitral annular calcification. Trace mitral regurgitation. Aortic Valve: Normal appearance of the aortic valve. No significant aortic stenosis or insufficiency. Tricuspid Valve: Normal appearance of the tricuspid valve. Estimated peak PA systolic pressure 28 mmHg. There is trace tricuspid regurgitation. Pulmonic Valve: Normal pulmonic valve appearance. Pericardium: Trivial pericardial effusion. Aorta: Normal aortic root. IVC: Normal size and normal respiratory collapse consistent with normal right atrial pressure. Conclusions 1.Normal left ventricular wall thickness. Mild enlargement of left ventricle cavity. Moderate left ventricular systolic dysfunction. Ejection fraction is visually estimated at 30-35 %. Tissue Doppler/Mitral Doppler indices are consistent with impaired relaxation (Stage I diastolic dysfunction). 2.Mitral valve leaflets appear mildly thickened. Mild mitral annular calcification. Trace mitral regurgitation. 3.Normal appearance of the aortic valve. No significant aortic stenosis or insufficiency. 4.Normal appearance of the tricuspid valve. Estimated peak PA systolic pressure 28 mmHg. There is trace tricuspid regurgitation. 5.Normal size and normal respiratory collapse consistent with normal right atrial pressure. Electronically Signed By: Donald Garcia 15-Apr-2017 16:17:13 -0800 Patient Name: DANIEL ROSEN Study Date: 15-Apr-[id number]
--- NOTE | 2017-04-15 16:55 | DS ---
Date/Time of Note Date/Time of Note DATE: 04/15/17 TIME: 16:55 Discharge Summary Admission/Discharge Info Admit Date/Time Apr 12, 2017 at 09:50 Discharge Date/Time Discharge Diagnosis 1. S/P sepsis secondary to healthcare associated pneumonia. 2. Healthcare associated pneumonia. 3. Acute respiratory failure. Hypoxic. Resolved. 4. Essential hypertension. 5. Normocytic, normochromic anemia. 6. End stage renal disease on Hemodialysis. 7. Cardiomyopathy EF of 30-35%. 8. Acute congestive heart failure exacerbation. Systolic dysfunction. Patient Condition: Stable Consults 1. Coleman Meza MD, Nephrology. 2. Dhaval Royal MD, Nephrology. Procedures Latest CXR IMPRESSION: Improved aeration with residual bilateral interstitial opacities and left upper lobe airspace opacity consistent with resolving pneumonia. 2D Echocardiogram Conclusions 1. Normal left ventricular wall thickness. Mild enlargement of left ventricle cavity. Moderate left ventricular systolic dysfunction. Ejection fraction is visually estimated at 30-35 %. Tissue Doppler/Mitral Doppler indices are consistent with impaired relaxation (Stage I diastolic dysfunction). 2. Mitral valve leaflets appear mildly thickened. Mild mitral annular calcification. Trace mitral regurgitation. 3. Normal appearance of the aortic valve. No significant aortic stenosis or insufficiency. 4. Normal appearance of the tricuspid valve. Estimated peak PA systolic pressure 28 mmHg. There is trace tricuspid regurgitation. 5. Normal size and normal respiratory collapse consistent with normal right atrial pressure. Hx of Present Illness Reason for admission: Brought in from a hemodialysis clinic because of dyspnea, hypoxia, and febrile illness. Consultants 1. Coleman Meza MD, Nephrology. This is a 46-year-old male with past medical history of end-stage renal disease on hemodialysis on Friday, , and Friday, and essential hypertension who was undergoing hemodialysis when he became acutely short of breath with hypoxia. Therefore, the patient was brought to the emergency room. The patient verbalized that he has been feeling a cough and flulike symptoms for the past 1 week or so. The patient was complaining of abdominal bloating and nausea along with decreased appetite. The patient denied any vomiting. The patient verbalized febrile episodes at home. The patient denied any chest pain. In the emergency room, the patient had a temperature of 102.6F. The patient' s chest x-ray that was done showed bilateral infiltrates with more focal consolidation within the left mid/lower lung zones. The patient was treated with IV cefepime and IV vancomycin in the emergency room. The patient was placed on BiPAP therapy in the emergency room that helped to improve the patient 's respiratory distress. Hospital Course The patient was admitted to inpatient telemetry floor. The patient was started on empiric anabiotics. [place] cultures were obtained. A nephrology consult was obtained. The patient's pancultures remained negative. The patient continued to have febrile episodes for at least 24 hours after admission to the hospital. Afterwards, the patient remained afebrile. The patient had no evidence of any septic shock. The patient also had evidence of fluid overload and in fact he could not finish his outpatient hemodialysis on the day of admission. The patient was aggressively dialyzed as per nephrology. The patient's 2D echo showed evidence of underlying cardiomyopathy and the patient had evidence of systolic heart failure. The patient was on Lopressor 50 mg orally daily prior to admission. This was increased to BID. The patient ideally needs to be started on ACEI or ARB because of his underlying cardiomyopathy. This can be done by his documentation analyst or his primary care physician with monitoring his blood pressure closely. The patient had underlying normocytic, normochromic anemia. This could be anemia of chronic kidney disease. The patient's H&H remained stable. The patient had a stable hospital course and he is stable to be discharged home to be followed up with outpatient nephrology and director of tax services closely. Discharge Instructions 1. Take medications as per prescription. Complete the course of antibiotics 2. Follow-up with your hemodialysis clinic as scheduled. 3. Resume activities as tolerated. 4. Take a renal diet. 5. Follow-up with your primary care physician 1 week. If you do not have a primary care physician, please call Dr. Wayne Oliver's office. The patient verbalized understanding of his discharge instructions. At this time, I would like to thank all the consultants for seeing the patient and providing clinical recommendations. Case discussed with Dr. Robb. Home Meds Active Scripts Albuterol Sulfate* (Proair HFA*) 8.5 Gm Hfa.aer.ad, 2 PUFF INH Q4, #1 INHALER Prov:JENNIFER LOPES NP 04/15/17 Guaifenesin* (Robitussin*) 100 Mg/5 Ml Syrup, 100 MG PO Q4H Y for COUGH, #1 ML Prov:JENNIFER LOPES HAMMERER HELPER 04/15/17 Levofloxacin* (Levaquin*) 500 Mg Tablet, 500 MG PO Q48H, #5 TAB Prov:JENNIFER LOPES HAMMERER HELPER 04/15/17 Metoprolol Tartrate* (Lopressor*) 50 Mg Tab, 50 MG PO BID, #60 TAB Prov:JENNIFER LOPES HAMMERER HELPER 04/15/17 Reported Medications Cinacalcet* (Sensipar*) 30 Mg Tab, 30 MG PO DAILY, TAB 04/12/17 Multivit/Ca Carb/B Cmplx/Fa* (Alicia-Radha*) 1 Tab Tab, 1 TAB PO DAILY, TAB 04/12/17 Sevelamer Hcl* (Renagel*) 800 Mg Tablet, 3200 MG PO WITH MEALS, TAB 04/12/17 Discontinued Reported Medications Metoprolol Tartrate* (Lopressor*) 50 Mg Tab, 50 MG PO DAILY, #60 TAB 04/12/17 Follow-up Plan Wayne Oliver MD Specialty: Internal Medicine Office Address: [address] [place] [address] Office Primary Care Provider Care Physician No Primary Time spent on discharge: 40 minutes. Pending Labs Laboratory Tests Test 04/15/17 07:39 White Blood Count 8.310^3/ul (4.8-10.8) Red Blood Count 3.1010^6/ul (4.70-6.10) Hemoglobin 9.5g/dl (14.0-18.0) Hematocrit 29.6% (42.0-52.0) Mean Corpuscular Volume 95.5fl (82.0-101.0) Mean Corpuscular Hemoglobin 30.6pg (29.0-33.0) Mean Corpuscular Hemoglobin Concent 32.1g/dl (32.0-37.0) Red Cell Distribution Width 12.6% (11.5-14.5) Platelet Count 73694^3/UL (140-415) Mean Platelet Volume 10.3fl (7.4-10.4) Neutrophils % 67.2% (39.0-77.0) Lymphocytes % 14.4% (15.0-51.0) Monocytes % 9.1% (0.0-11.0) Eosinophils % 5.3% (0.0-7.0) Basophils % 0.4% (0.0-2.0) Nucleated Red Blood Cells % 0.0/100WBC (0.0-0.0) Neutrophils # 5.510^3/ul (1.6-7.5) Lymphocytes # 1.210^3/ul (0.8-2.9) Monocytes # 0.810^3/ul (0.3-0.9) Eosinophils # 0.410^3/ul (0.0-0.5) Basophils # 0.010^3/ul (0.0-0.1) Nucleated Red Blood Cells # 0.010^3/ul (0.0-0.0) Sodium Level 138mmol/L (135-144) Potassium Level 4.6mmol/L (3.5-5.1) Chloride Level 97mmol/L (97-110) Carbon Dioxide Level 26mmol/L (21-31) Anion Gap 20 (8-16) Blood Urea Nitrogen 53mg/dl (7-20) Creatinine 9.33mg/dl (0.61-1.24) Glucose Level 104mg/dl (70-220) Calcium Level 10.1mg/dl (8.4-10.2) Total Bilirubin 0.0mg/dl (0.2-1.3) Direct Bilirubin 0.00mg/dl (0.00-0.20) Indirect Bilirubin 0.0mg/dl (0-1.1) Aspartate Amino Transf (AST/SGOT) 20IU/L (15-46) Alanine Aminotransferase (ALT/SGPT) 34IU/L (13-69) Alkaline Phosphatase 102IU/L (42-121) Total Protein 7.3g/dl (6.1-8.1) Albumin 3.8g/dl (3.3-4.9) Globulin 3.50g/dl (1.3-3.2) Albumin/Globulin Ratio 1.08 JENNIFER LOPES NP Apr 15, 2017 16:55
--- NOTE | 2017-04-15 21:44 | RADRPT ---
Vent Rate: 98 bpm RR Interval: 0 msec [place] Interval: 140 msec QRS Duration: 84 msec QT Interval: 340 msec QTC Interval: 434 msec P-R-T [place]: 53 - 69 - 83 degrees Normal sinus rhythm Voltage criteria for left ventricular hypertrophy Abnormal ECG Electronically Signed By: Ja Elizalde [id number]
== END 2017-04-15 18:30 | disposition home or self-care (01) | DRG 871 ==
LOC: E/R 04:57 → MS4 09:50 → UNDOADMIN 11:30 → MS4 11:30
PROVIDERS: ADMIT Internal Medicine; ATTEND Internal Medicine
PROC: 5A1D70Z Performance of Urinary Filtration, Intermittent, Less than 6 Hours Per Day (ICD-10-PCS; principal; 2017-04-12)
DX: A41.9 Sepsis, unspecified organism (principal); J18.9 Pneumonia, unspecified organism; J96.01 Acute respiratory failure with hypoxia; N18.6 End stage renal disease; I50.21 Acute systolic (congestive) heart failure; I12.0 Hypertensive chronic kidney disease with stage 5 chronic kidney disease or end stage renal disease; I13.2 Hypertensive heart and chronic kidney disease with heart failure and with stage 5 chronic kidney disease, or end stage renal disease; I10 Essential (primary) hypertension; D64.9 Anemia, unspecified; R04.0 Epistaxis; Z99.2 Dependence on renal dialysis
CPT/HCPCS: 36415; 36600; 71010; 80048; 80053; 80061; 80202; 82803; 83036; 83605; 83735; 84100; 84439; 84443; 84484; 85025; 85610; 85730; 87040; 87081; 87400; 90935; 93005; 93306; 94640; 94660; 94664; 96374; 96375; J0360; J0692; J1644; J3370; J7030; Q4081

== ENCOUNTER 2017-07-05 11:19 | Emergency (ER) | END 2017-07-05 17:40 | disposition home or self-care (01) ==